=== PATIENT | female | born 2000 | race Caucasian/White ===

== ENCOUNTER 2021-10-19 07:47 | Emergency (ER) | payer BC, MEDICAID ==
[2021-10-19] MEDS ORDERED: Albuterol 8 GM Inhaler ONE (07:53)
[2021-10-19] MEDS ORDERED: Albuterol/Ipratropium 3.0-0.5 MG/3 ML Neb Soln NEB ONE ×2 (07:57→08:55)
[2021-10-19] MEDS ORDERED: methylPREDNISolone Sodium Succinate 125 MG/2 ML SDV IVPUSH ONE (07:57)
[2021-10-19] MEDS ORDERED: Sodium Chloride 0.9% 1,000 ML IV ONE (08:03)
[2021-10-19] MEDS ORDERED: Magnesium Sulfate (4.06 MEQ/ML) 5 GM/10 ML SDV IV STA (08:03)
[2021-10-19] MEDS ORDERED: Magnesium Sulfate/Water 2 GM in Premix Bag 1 BAG IV SCH (08:30)
[2021-10-19 08:47] LABS: BLOOD UREA NITROGEN,BUN 5 mg/dL (7.0-18.0); CARBON DIOXIDE,CO2 25.1 mmol/L (21.0-32.0); CHLORIDE,CL 102 mmol/L (98-107); GLUCOSE RANDOM 111 mg/dL (74-106); SODIUM,NA 139 mmol/L (136-145)
== END 2021-10-19 09:56 | disposition home or self-care (01) ==
LOC: MW.ED 07:47
DX: J45.909 Unspecified asthma, uncomplicated (principal)
CPT/HCPCS: 36415; 71045; 80053; 83735; 84100; 84484; 84703; 85025; 85379; 93005; 96365; 96375; 99285; A9270; J2930; J3475; J7030; 93010; 99284; J7620-GY